=== PATIENT | male | born 1980 | race Hispanic/Latino ===

== ENCOUNTER 2018-07-01 00:03 | Emergency (ER) | payer OTHER | END 2018-07-01 00:52 | disposition home or self-care (01) | LOC: EDH 00:03 | DX: H10.219 Acute toxic conjunctivitis, unspecified eye (principal); E11.9 Type 2 diabetes mellitus without complications; I10 Essential (primary) hypertension ==

== ENCOUNTER 2018-07-27 12:35 | Inpatient (IN) | payer OTHER ==
[~2018-07-27] VITALS: Ht 180.3 cm; Wt 113.9 kg
[2018-07-27] MEDS ORDERED: NITROGLYCERIN 1GM/1 INCH PACKET TD ONE (12:56)
[2018-07-27] MEDS ORDERED: ONDANSETRON HCL 4 MG/2 ML VIAL ONE (12:58)
[2018-07-27] MEDS ORDERED: ASPIRIN 325 MG TABLET ONE (12:59)
[2018-07-27 13:06] LABS: BASOPHILS % (AUTO) 0.9 % (0.0-5.0); EOSINOPHILS % (AUTO) 21.8 % (0.0-8.0); HEMATOCRIT 34.2 % (42-54); LYMPHOCYTES % (AUTO) 16.7 % (21.0-51.0); MEAN CORPUSCULAR HGB CONC 34.2 g/dL (32.0-36.0); MEAN CORPUSCULAR VOLUME 87.8 fL (79-99); MONOCYTES % (AUTO) 5.6 % (3.0-13.0); PLATELET COUNT (AUTO) 268 K/uL (130-400); RED BLOOD CELL COUNT(AUTO) 3.89 MIL/uL (4.50-6.20); RED CELL DISTRIBUTION WIDTH 13.7 % (11.0-15.5); WHITE BLOOD COUNT (AUTO) 11.6 K/uL (4.8-10.8)
[2018-07-27 13:17] LABS: APPEARANCE,URINE Clear (CLEAR); BILIRUBIN,URINE Negative (NEGATIVE); COLOR,URINE Yellow (YELLOW); GLUCOSE, URINE (UA) 250 mg/dL (NEGATIVE); KETONES,URINE Negative (NEGATIVE); LEUKOCYTE ESTERASE ,URINE Negative (NEGATIVE); NITRATE,URINE Negative (NEGATIVE); OCCULT BLOOD,URINE Moderate (NEGATIVE); PH,URINE 5.5 (5.0-8.0); PROTEIN,URINE >=1000 mg/dL (NEGATIVE); UROBILINOGEN,URINE 0.2 mg/dL (0.2-1.0)
[2018-07-27 13:20] LABS: INR 0.95 (0.85-1.15); PARTIAL THROMBOPLASTIN TIME 29.7 SEC (26.3-35.5)
[2018-07-27 13:26] LABS: AMPHET/METH SCREEN,URINE NEGATIVE (NEGATIVE); BARBITURATE SCREEN, URINE NEGATIVE (NEGATIVE); BENZODIAZEPINES SCREEN,URINE NEGATIVE (NEGATIVE); CANNABINOID SCREEN,URINE NEGATIVE (NEGATIVE); COCAINE SCREEN,URINE POSITIVE (NEGATIVE); OPIATE SCREEN,URINE NEGATIVE (NEGATIVE); PHENCYCLIDINE SCREEN,URINE NEGATIVE (NEGATIVE)
[2018-07-27 13:29] LABS: BACTERIA,URINE None Seen /HPF (None Seen); SQUAMOUS EPITHELIAL CELL,UR 0-2 /HPF (0-2); WBC,URINE 0-1 /HPF (0-1)
[2018-07-27 13:30] LABS: ALBUMIN 3.2 g/dL (3.5-5.0); BILIRUBIN,TOTAL 0.3 mg/dL (0.2-1.0); TOTAL PROTEIN, SERUM 7.6 g/dL (6.0-8.3)
[2018-07-27] MEDS ORDERED: LIDOCAINE HCL 2% VISCOUS 15 ML UDCUP ONE (14:26)
[2018-07-27] MEDS ORDERED: MAG HYDROX/AL HYDROX/SIMETH ES 30 ML SUSP UDCUP ONE (14:26)
[2018-07-27] MEDS ORDERED: SODIUM BICARB 8.4% 50ML SYRING 150 MEQ in DEXTROSE 5%-WATER 1,000 ML IV SCH (21:00)
[2018-07-27] MEDS: INSULIN HUMULIN R 100 UNIT/ML 3ML SQ SCH (21:00)
[2018-07-27] MEDS: IPRATROPIUM/ALBUTEROL SULFATE 3 ML SOLUTION IH SCH (23:08)
[2018-07-27 23:40] VITALS: BP 187/116
--- NOTE | 2018-07-27 23:45 | NUR ---
Admission Assessment Received pt from ED per felix, with Sodium Bicarb drip in progress at 70cc/hr, with spouse around. Routine admission assessment done, plan of care discuss, per pt stated he has been diabetic for couple of years but has not been taking anything for it, stated he has been incarcerated & just get out this month the 18th under parole with ankle bracelet on. Pt noted with wound to his left big toe claimed it started as a blister Sept of last year, it pop & it never heals, dry scab formation. Pt made aware of complication if diabetes not being controlled, numbness to lower extremities, vision impairment, kidney problems which pt admits he has all this three. Pt also claimed that he uses cocaine 3-4 times per week. Pt instructed regarding 24 hour urine collection as it was not started in ED. Since pt claimed had voided multiple times in Ed, instructed to void in a urinal(provided) & to call us so we can place it in a container & place on ice, verbalized understanding. Pt also instructed to be NPO for now as he is pending renal sonogram in AM.Pt is current with his flu shot. Home medication entered, pending reconciliation. 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
[2018-07-28] MEDS ORDERED: OMEP20TA25 PO (00:45)
[2018-07-28] MEDS ORDERED: FURO20TA6 PO (00:45)
[2018-07-28] MEDS ORDERED: LISI40TA4 PO (00:45)
[2018-07-28 01:03] VITALS: BP 153/91
[2018-07-28 04:00] VITALS: BP 152/95
[2018-07-28] MEDS: IPRATROPIUM/ALBUTEROL SULFATE 3 ML SOLUTION IH SCH (06:36)
[2018-07-28] MEDS: INSULIN HUMULIN R 100 UNIT/ML 3ML SQ SCH (06:51)
[2018-07-28 07:00] VITALS: BP 153/87
--- NOTE | 2018-07-28 08:47 | NUR ---
MD CONSULT DR. MOTA NOTIFIED OF CONSULT . WILL SEE PATIENT TODAY.
--- NOTE | 2018-07-28 10:40 | NUR ---
PATIENT SIGNED AMA FORM. STATED WAS VERY HUNGRY AND NO PHYSICIAN HAD SEEN HIM WHILE ON THE FLOOR. PATIENT NOTIFIED REGARDING CONSULT FOR DR. MOTA AND WOULD ORDER A DIET ONCE PATIENT HAS BEEN ASSESSED. PATIENT STATED WILL NOT WAIT, 20G PIV TO RAC REMOVED, TIP INTACT. PATIENT DRESSED AND LEFT THE ROOM ACCOMPANIED BY SPOUSE.
--- NOTE | 2018-07-28 10:45 | NUR ---
NOTE SPOKE TO PATIENT ABOUT HIS LAB RESULTS AND HIS DESIRE TO LEAVE AMA. HE WANTS TO LEAVE BECAUSE HE WANTS TO EAT AND BECAUSE DOCTORS HAVE NOT DONE ANYTHING YET. I EXPLAINED THAT WE DID LAB WORK AND HAVE CONSULTED [facility]ABI[facility]LA FOR HIS KIDNEY PROBLEMS AND HE CANNOT ORDER DIET YET UNTIL HE SEES THE PATIENT BECAUSE HE MIGHT HAVE TO ORDER MORE TESTS. HE IS ON A 24 HOUR URINE COLLECTION. HE DOES NOT WANT TO WAIT FOR DOCTORS, HE INSISTS HE IS HUNGRY AND HE KNOWS HE IS VERY SICK AND STATES BECAUSE HE HAS DIABETES AND DOES NOT TAKE CARE OF HIMSELF. HE SAYS HIS DAD WAS IN DIALYSIS AND ALREADY AND SO DID HIS UNCLE. HE SIGNED AMA FORM AND LEFT.
--- NOTE | 2018-07-28 14:21 | NUR ---
CM NOTE cm attempted to speak to pt regarding d/c planning. pt left AMA. Addendum: 07/28/18 at 1422 by JACKIE LOONEY CM Amended: Links added.
== END 2018-07-28 12:30 | disposition left against medical advice (07) | DRG 699 ==
LOC: EDH 12:35 → EDHIP 12:36 → 3CH 23:40
PROVIDERS: ADMIT Internal Medicine; ATTEND Internal Medicine
DX: N28.9 Disorder of kidney and ureter, unspecified (principal); E87.1 Hypo-osmolality and hyponatremia; D64.9 Anemia, unspecified; E11.22 Type 2 diabetes mellitus with diabetic chronic kidney disease; E78.2 Mixed hyperlipidemia; F14.90 Cocaine use, unspecified, uncomplicated; N18.9 Chronic kidney disease, unspecified; F17.210 Nicotine dependence, cigarettes, uncomplicated; I12.9 Hypertensive chronic kidney disease with stage 1 through stage 4 chronic kidney disease, or unspecified chronic kidney disease; Z91.14 Patient's other noncompliance with medication regimen
CPT/HCPCS: 36415; 71045; 74176; 80053; 80305; 81001; 82150; 82550; 82948; 83690; 83874; 84484; 85025; 85610; 85730; 86038; 86160; 86162; 86215; 86235; 86334; 93005; 94640; 94664; G0378; J2405; J3490; J7070